=== PATIENT | female | born 1985 | race Caucasian/White ===

== ENCOUNTER → 2020-10-18 15:14 | Outpatient (BNVA) | payer OTHER, SELFPAY | PROVIDERS: PCP Pediatrics; Visit Provider Advanced Practice Midwife | DX: Z32.01 Encounter for pregnancy test, result positive (principal) | CPT/HCPCS: 81025; 99202 ==

== ENCOUNTER 2020-10-30 15:27 | Outpatient (REF) | payer OTHER, SELFPAY ==
--- NOTE | ~2020-10-30 | US_ITS ---
EXAMINATION: FIRST TRIMESTER OB ULTRASOUND CLINICAL INFORMATION: Irregular menstruation. Missed menses. Check size and dates. COMPARISON: None TECHNIQUE: Transabdominal first trimester OB ultrasound FINDINGS: There is an intrauterine gestational sac. [place]-rump length measures 7.9 cm suggesting gestational age of 14 weeks 0 days with estimated date of delivery of 04/30/2021. heart rate is 158 bpm. A yolk sac is not seen. The maternal ovaries are not seen. There is no fluid in the maternal pelvis. US/US OB <= 14 weeks fetus IMPRESSION: Single live intrauterine . From today's measurements, gestational age is estimated at 14 weeks 0 days with estimated date of delivery of 04/30/2021.
== END 2020-10-30 15:28 | disposition home or self-care (01) ==
LOC: HO.US 15:27
PROVIDERS: Visit Provider Advanced Practice Midwife
DX: N92.6 Irregular menstruation, unspecified (principal)
CPT/HCPCS: 76801

== ENCOUNTER → 2020-11-13 14:00 | Outpatient (BNVA) | payer OTHER, SELFPAY | PROVIDERS: PCP Pediatrics; Visit Provider Advanced Practice Midwife | DX: Z13.89 Encounter for screening for other disorder (principal) | CPT/HCPCS: 99212 ==

== ENCOUNTER 2020-11-16 09:23 | Outpatient (REF) | payer OTHER, SELFPAY ==
[2020-11-16 11:29] LABS: MANUAL DIFF FLAG NO
[2020-11-16 11:45] LABS: Basophils Percent Auto 0.2 % (0-2); Eosinophils Absolute Auto 0.1 X10*3/uL (0.0-0.4); Eosinophils Percent Auto 0.6 % (0-4); Hematocrit 38.2 % (37-47); Hemoglobin 12.5 g/dl (12.0-16.0); Imm Gran Abs Auto 0.07 X10*3/uL (0.00-0.03); Imm Gran Pct Auto 0.6 % (0.0-0.4); Lymphocytes Absolute Auto 1.2 X10*3/uL (1.2-4.9); Lymphocytes Percent Auto 10.8 % (20-40); Mean Corpuscular HGB Conc 32.7 g/dl (31.0-35.0); Mean Corpuscular Hemoglobin 30.8 pg (27.0-33.0); Mean Corpuscular Volume 94.1 fL (80-98); Mean Platelet Volume 9.8 fL (9.4-12.3); Monocytes Absolute Auto 0.6 X10*3/uL (0.1-1.2); Monocytes Percent Auto 4.9 % (2-11); Neutrophils Absolute Auto 9.3 X10*3/uL (2.0-8.3); Neutrophils Percent Auto 82.9 % (45-73); Platelet Count 334 X10*3/uL (160-400); Red Blood Count 4.06 X10*6/uL (4.20-5.50); Red Cell Distribution Width 13.4 % (11.0-16.0); White Blood Count 11.2 X10*3/uL (4.8-10.8)
[2020-11-16 12:21] LABS: Amphetamine Screen Urine Not Detected (Not Detect); Barbiturates, Urine Not Detected (Not Detect); Benzodiazepines Screen Urine Not Detected (Not Detect); Cannabinoid Screen Urine Not Detected (Not Detect); Cocaine Screen Urine Not Detected (Not Detect); Opiate Screen Urine Not Detected (Not Detect); Phencyclidine Screen Urine Not Detected (Not Detect)
[2020-11-16 14:37] LABS: Glucose 1 Hour PP 50gm Dose 225 mg/dL (60-140)
[2020-11-18 04:13] LABS: HIV AB/AG Nonreactive (Nonreactive); HIV Num 1 0.06 S/CO (0.00-0.99); Syphilis Screen Nonreactive (Nonreactive)
[2020-11-18 04:26] LABS: HBsAGNum1 0.11 S/CO (0.00-0.99); Hepatitis B Surface Antigen Negative (Negative); ~HepC Num1 0.08 S/CO (0.00-0.79); ~Hepatitis C Antibody Nonreactive (Nonreactive)
[2020-11-18 19:21] LABS: Rubella IgG Antibody 9.82 Index
== END 2020-11-16 09:24 | disposition home or self-care (01) ==
LOC: HO.LAB 09:23
PROVIDERS: PCP Pediatrics; Visit Provider Advanced Practice Midwife
DX: O09.519 Supervision of elderly primigravida, unspecified trimester (principal); Z3A.00 Weeks of gestation of pregnancy not specified
CPT/HCPCS: 80307; 85025; 86762; 86780; 86787; 86803; 86850; 86900; 86901; 87086; 87340; 87389

== ENCOUNTER 2020-11-18 15:00 | Outpatient (REF) | payer OTHER, SELFPAY ==
[2020-11-19 13:32] LABS: C. trachomatis RNA TMA NOT DETECTED (NOT DETECTED); N. gonorrhoeae RNA TMA NOT DETECTED (NOT DETECTED)
[2020-11-20 18:11] LABS: HPV mRNA E6/E7 rflx Not Detected (Not Detected)
== END 2020-11-18 15:01 | disposition home or self-care (01) ==
LOC: HO.LAB 15:00
PROVIDERS: PCP Pediatrics; Visit Provider Advanced Practice Midwife
DX: O24.312 Unspecified pre-existing diabetes mellitus in pregnancy, second trimester (principal); E11.9 Type 2 diabetes mellitus without complications; O09.512 Supervision of elderly primigravida, second trimester; Z3A.16 16 weeks gestation of pregnancy; Z79.84 Long term (current) use of oral hypoglycemic drugs
CPT/HCPCS: 36415; 87491; 87591; 87624; 88142; 99212